=== PATIENT | male | born 1955 ===

== ENCOUNTER 2024-01-19 11:25 | Outpatient (REF) | payer OTHER, SELFPAY ==
[2024-01-19 19:39] LABS: ALT 32 U/L (16-63); AST 23 U/L (15-37); Albumin 4.3 g/dL (3.4-5.0); Alkaline Phosphatase 99 U/L (46-116); Anion Gap 8.6 mmol/L (3-11); BUN 20 mg/dL (7-18); Bilirubin, Total 0.51 mg/dL (0.2-1.0); CO2 28.4 mmol/L (21.0-32.0); CREATININE 0.8 mg/dL (0.70-1.30); Calcium 9.3 mg/dL (8.5-10.1); Chloride 102 mmol/L (98-107); Estimated GFR 97.61 (mL/min/1.73m2); Glucose 105 mg/dL (74-106); Potassium 4.2 mmol/L (3.5-5.1); Sodium 139 mmol/L (136-145)
[2024-01-21 18:07] LABS: PSA, Ultrasensitive 5.8 ng/mL (<= 4.5)
== END 2024-01-19 11:26 | disposition home or self-care (01) ==
LOC: NCHCN 11:25
PROVIDERS: Visit Provider Nurse Practitioner Family
DX: E78.5 Hyperlipidemia, unspecified (principal); N40.1 Benign prostatic hyperplasia with lower urinary tract symptoms
CPT/HCPCS: 80053; 84153

== ENCOUNTER → 2025-02-09 14:15 | Outpatient (BNVA) | payer MEDICARE, SELFPAY | PROVIDERS: Visit Provider Urology | DX: Z80.42 Family history of malignant neoplasm of prostate (principal); R97.20 Elevated prostate specific antigen [PSA] | CPT/HCPCS: 99213 ==